=== PATIENT | female | born 1970 | race Caucasian/White ===

== ENCOUNTER → 2019-06-11 | Outpatient (CLI) | payer MEDICARE, MEDICAID ==
[~2019-06-11] MED LIST: ALLERGY PILL PO; AMPH20TA2 PO; BLACK COHOSH PO; COLLAGEN PO; FURO40TA6 PO; IBUP200C8 PO; L-LYSINE PO; MV-M1TAB52 PO; POTASSIUM PO; PROP20TA PO; SERT25TA PO; [UNRECOGNIZED DRUG - OTHER] PO; [UNRECOGNIZED DRUG - REMARK] PO
[2019-06-11 10:39] LABS: ALBUMIN 3.6 g/dL (3.4-5.0); ANION GAP 6 mmol/L (5-15); CALCIUM 8.4 mg/dL (8.5-10.1); CHLORIDE 105 mmol/L (98-107)
[2019-06-11 10:42] LABS: ALANINE AMINOTRANSFERASE 24 U/L (12-78); ALKALINE PHOSPHATASE 72 U/L (45-117); BILIRUBIN,TOTAL 0.5 mg/dL (0.2-1.0); CREATININE 1.05 mg/dL (0.55-1.02); TOTAL PROTEIN 6.8 g/dL (6.4-8.2)
== END | disposition home or self-care (01) ==
LOC: STAR 09:05
PROVIDERS: ATTEND Surgery
DX: Z01.818 Encounter for other preprocedural examination (principal); D05.12 Intraductal carcinoma in situ of left breast; F12.10 Cannabis abuse, uncomplicated
CPT/HCPCS: 36415; 80053

== ENCOUNTER 2019-06-17 08:55 | Day surgery (SDC) | payer MEDICARE, MEDICAID ==
[~2019-06-17] VITALS: Ht 167.6 cm; Wt 68.2 kg
[2019-06-17] MEDS ORDERED: LACTATED RINGERS 1,000 ML IV SCH (10:48)
[2019-06-17 10:50] VITALS: BP 125/81
[2019-06-17] MEDS ORDERED: LIDOCAINE 1%-EPI 1:100K, 20ML ONE (10:52)
[2019-06-17] MEDS ORDERED: LIDOCAINE 1%, 20ML ONE (10:52)
[2019-06-17] MEDS ORDERED: SODIUM BICARBONATE 4.2%, 5ML ONE (10:52)
[2019-06-17 10:59] LABS: HCG UR SG 1.022 (1.003-1.030)
[2019-06-17] MEDS ORDERED: MIDAZOLAM 1 MG/ML, 2ML ONE (11:16)
[2019-06-17] MEDS ORDERED: DEXAMETHASONE 4 MG/ML, 1ML ONE ×2 (11:17→11:26)
[2019-06-17] MEDS ORDERED: PROPOFOL 10 MG/ML, 20ML ONE (11:17)
[2019-06-17] MEDS ORDERED: FENTANYL PF 250 MCG/5ML ONE (11:17)
[2019-06-17] MEDS ORDERED: CEFAZOLIN 1,000 MG ONE (11:17)
[2019-06-17] MEDS ORDERED: SUCCINYLCHOLINE 20 MG/ML, 10ML ONE (11:17)
[2019-06-17] MEDS ORDERED: ROCURONIUM 10MG/ML,5ML ONE (11:17)
[2019-06-17] MEDS ORDERED: ONDANSETRON 2MG/ML, 2ML ONE ×2 (11:26→12:31)
[2019-06-17] MEDS ORDERED: BUPIVACAINE/EPI 0.5% 1:200K ONE (11:47)
[2019-06-17] MEDS ORDERED: DIAZEPAM 5 MG/ML, 2ML IVPush PRN (12:00)
[2019-06-17] MEDS ORDERED: PROMETHAZINE 12.5 MG SUPP PR PRN (12:00)
[2019-06-17] MEDS ORDERED: LABETALOL 5MG/ML, 20ML IV PRN (12:00)
[2019-06-17] MEDS ORDERED: ONDANSETRON ODT 8 MG PO PRN (12:00)
[2019-06-17] MEDS ORDERED: HYDROmorphone 2 MG/ML, 1ML IVPush PRN (12:00)
[2019-06-17] MEDS ORDERED: hydrALAzine 20 MG/ML, 1ML IV PRN (12:00)
[2019-06-17] MEDS ORDERED: EPHEDRINE 50 MG/ML, 1ML IVPush PRN (12:00)
[2019-06-17] MEDS ORDERED: FENTANYL PF 100 MCG/2ML IV PRN (12:00)
[2019-06-17] MEDS ORDERED: MEPERIDINE/PF 25MG/ML,1ML IVPush PRN (12:00)
[2019-06-17] MEDS ORDERED: ACETAMINOPHEN 325 MG TABLET PO PRN (12:00)
[2019-06-17] MEDS ORDERED: ONDANSETRON 2MG/ML, 2ML IV PRN (12:00)
[2019-06-17] MEDS ORDERED: ALBUTEROL SULFATE 2.5 MG/3 ML NPPB PRN (12:00)
[2019-06-17] MEDS ORDERED: HALOPERIDOL 5 MG/ML IV PRN (12:00)
[2019-06-17] MEDS ORDERED: PROMETHAZINE 25 MG/ML, 1ML IV PRN (12:00)
[2019-06-17] MEDS ORDERED: OXYcodone 5 MG/5 ML ORAL.SOL UDC PO PRN (12:00)
[2019-06-17] MEDS ORDERED: MIDAZOLAM 1 MG/ML, 2ML IV PRN (12:00)
== END 2019-06-17 14:35 | disposition home or self-care (01) ==
LOC: CFH 08:55 → OUT 14:35
PROVIDERS: ATTEND Surgery
DX: D05.12 Intraductal carcinoma in situ of left breast (principal); G62.9 Polyneuropathy, unspecified; F90.9 Attention-deficit hyperactivity disorder, unspecified type; Z79.1 Long term (current) use of non-steroidal anti-inflammatories (NSAID); Z79.899 Other long term (current) drug therapy; Z87.891 Personal history of nicotine dependence; Z88.0 Allergy status to penicillin; Z98.890 Other specified postprocedural states; Z80.3 Family history of malignant neoplasm of breast
CPT/HCPCS: 19281; 19301; 76098; 81025; 88307; 88360; J0330; J0690; J1100; J2250; J2405; J2704; J3010; J3490; 77065

== ENCOUNTER 2019-07-27 10:39 | Outpatient (CLI) | payer MEDICARE, MEDICAID | END 2019-07-27 23:59 | disposition home or self-care (01) | LOC: ROC 10:39 | PROVIDERS: ATTEND Surgery | DX: C50.412 Malignant neoplasm of upper-outer quadrant of left female breast (principal); F90.9 Attention-deficit hyperactivity disorder, unspecified type; F41.9 Anxiety disorder, unspecified; G62.9 Polyneuropathy, unspecified | CPT/HCPCS: 99214; G0463 ==

== ENCOUNTER 2019-10-20 12:35 | Emergency (ER) | payer MEDICARE ==
[~2019-10-20] VITALS: Ht 167.6 cm; Wt 71.2 kg
[2019-10-20 12:41] VITALS: BP 125/84
[2019-10-20] MEDS ORDERED: ONDANSETRON 2MG/ML, 2ML ONE (12:56)
[2019-10-20] MEDS ORDERED: FAMOTIDINE 20 MG/2 ML ONE (12:56)
[2019-10-20] MEDS ORDERED: MAALOX/HYOSCYAMINE/LIDOCAINE 45 ML BTL ONE (12:56)
[2019-10-20] MEDS ORDERED: ONDANSETRON 2MG/ML, 2ML IVPush ONE (13:00)
[2019-10-20] MEDS ORDERED: FAMOTIDINE 20 MG/2 ML IVPush ONE (13:00)
[2019-10-20] MEDS ORDERED: SODIUM CHLORIDE FLUSH 10ML SYR IVF ONE (13:00)
[2019-10-20] MEDS ORDERED: MAALOX/HYOSCYAMINE/LIDOCAINE 45 ML BTL PO ONE (13:00)
[2019-10-20] MEDS ORDERED: KETOROLAC 30 MG/1 ML IVPush ONE (13:00)
[2019-10-20] MEDS ORDERED: KETOROLAC 30 MG/1 ML ONE (13:25)
[2019-10-20] MEDS ORDERED: FAMOTIDINE 20 MG TABLET ONE (13:25)
[2019-10-20] MEDS ORDERED: ONDANSETRON ODT 4 MG ONE (13:25)
[2019-10-20] MEDS ORDERED: ONDANSETRON ODT 4 MG PO ONE (13:30)
[2019-10-20] MEDS ORDERED: KETOROLAC 30 MG/1 ML IM ONE (13:30)
[2019-10-20] MEDS ORDERED: FAMOTIDINE 20 MG TABLET PO ONE (13:30)
--- NOTE | 2019-10-20 13:34 | NUR ---
PT CAME IN CO OF RIGHT UPPER ABD PAIN X 3 DAYS. PT DENIES TRAUMA. DENIES URINARY SYMPTOMS. DENIES DRUG OR ALCOHOL USE. PT MEDICATED PER MAR. CALL LIGHT WITHIN REACH
[2019-10-20 14:32] LABS: BASOPHILS # (AUTO) 0.03 x10^3/uL (0-0.1); BASOPHILS % (AUTO) 1 % (0-1); EOSINOPHILS # (AUTO) 0.12 x10^3/uL (0-0.4); EOSINOPHILS % (AUTO) 2 % (1-7); LYMPHOCYTES # (AUTO) 2.15 x10^3/uL (1-3.4); LYMPHOCYTES % (AUTO) 31 % (22-44); MD NO; MEAN CORPUSCULAR HEMOGLOBIN 29.6 pg (27.0-34.8); MEAN CORPUSCULAR VOLUME 89.7 fL (80-100); MEAN PLATELET VOLUME 7.1 fL (7.4-10.4); MONOCYTES # (AUTO) 0.53 x10^3/uL (0.2-0.8); MONOCYTES % (AUTO) 8 % (2-9); NEUTROPHILS # (AUTO) 4.08 x10^3/uL (1.8-6.8); NEUTROPHILS % (AUTO) 59 % (42-75); PLATELET COUNT 299 x10^3/uL (130-400); RED BLOOD COUNT 4.73 x10^6/uL (3.82-5.3); RED CELL DISTRIBUTION WIDTH 13.4 % (9.6-15.2)
[2019-10-20 14:39] LABS: ALANINE AMINOTRANSFERASE 22 U/L (12-78); ALBUMIN 3.4 g/dL (3.4-5.0); ANION GAP 6 mmol/L (5-15); CALCIUM 8.2 mg/dL (8.5-10.1); CHLORIDE 107 mmol/L (98-107); CREATININE 0.96 mg/dL (0.55-1.02)
[2019-10-20 14:44] LABS: ALKALINE PHOSPHATASE 81 U/L (45-117); BILIRUBIN,TOTAL 0.2 mg/dL (0.2-1.0); TOTAL PROTEIN 6.6 g/dL (6.4-8.2)
== END 2019-10-20 15:43 | disposition home or self-care (01) ==
LOC: ED 13:45
DX: K29.00 Acute gastritis without bleeding (principal); F17.210 Nicotine dependence, cigarettes, uncomplicated
CPT/HCPCS: 36415; 76700; 80053; 83690; 84703; 85025; 93005; 96372; 99285; J1885; Q0162; 90471